=== PATIENT | female | born 1970 | race Asian ===

== ENCOUNTER → 2022-01-10 | Outpatient (CLI) | payer OTHER ==
[~2022-01-10] MED LIST: IOPAMIDOL 370 MG/ML 100 ML INFUS..BTL INJ ONE
== END ==
LOC: CT 07:56
PROVIDERS: ATTEND Internal Medicine Interventional Cardiology
DX: I70.90 Unspecified atherosclerosis (principal)
CPT/HCPCS: 74177; Q9967